=== PATIENT | male | born 1970 | race Caucasian/White ===

== ENCOUNTER 2018-07-01 12:09 | Emergency (ER) | payer OTHER ==
[2018-07-01] MEDS ORDERED: ALBUTEROL 3 ML DEYVIAL IH ONE (13:07)
--- NOTE | 2018-07-01 13:07 | EDPHY ---
H & P Time Seen by Provider: 07/01/18 12:34 HPI/ROS: CLINICAL IMPRESSION: Influenza, bronchitis ASSESSMENT/PLAN: 47-year-old male presents to the emergency department with 4 days of URI symptoms, dry cough, wheezing, body aches and subjective fever and chills. Patient is afebrile on arrival although chilled and appears uncomfortable. No hypoxia or respiratory distress. He had diffuse wheezing throughout on initial exam which was improved after an albuterol neb. No chest x-ray evidence of underlying pneumonia or acute cardiopulmonary disease. He was influenza a positive. Remainder of labs reassuring with no leukocytosis, normal lactate, renal function and no evidence of severe dehydration. Given that patient is 4 days into his symptoms, Tamiflu was deferred. I gave him a prescription for an albuterol inhaler, encouraged primary care recheck, supportive care at home, warning signs return to ED sooner alignment discharge. DIFFERENTIAL DX: Differential diagnosis includes but not limited to viral syndrome, influenza, pneumonia, bronchitis, sepsis ED PROCEDURES: See lab and imaging results below ED COURSE: 3:15 p.m.: Patient reassessed, feeling better after neb treatment, lung sounds improved, no hypoxia vitals remained stable. Given that he has been symptomatic for 4 days, not an ideal candidate for Tamiflu. No antibiotics indicated at this time. Radiology read x-ray has no evidence of pneumonia. Will prescribe albuterol inhaler and recommend PCP follow-up. CHIEF COMPLAINT: Cough, body ache HPI: 47-year-old male with past medical history of a neuromuscular disorder of the lower extremities presents to the emergency department with 4 days of dry cough , shaking chills, subjective fevers, and body aches. Patient reports he has been using Tylenol and ibuprofen at home. He came to the ED today for worsening cough and shakes. He reports no underlying cardiopulmonary disease or asthma. He does not smoke cigarettes. He did not get a flu shot this year. He has a implanted neuro modulator in his abdomen to help with chronic back pain. He has been to numerous neurologist but has never had a formal diagnosis to his neuromuscular disorder. No worsening lower extremity weakness or muscle spasms. His upper extremities are unaffected. No associated nausea, vomiting, diarrhea although he states his abdomen is"tight"from coughing so much. PAST MEDICAL HISTORY: Undiagnosed neuromuscular disorder, depression, ADD, mood instability Pertinent Past Surgical History: Multiple orthopedic surgeries Family History: None reported Social History: Nonsmoker ROS: A full 10 point review of systems was negative except for those mentioned in HPI. PHYSICAL EXAM: General Appearance: Alert, oriented, appropriate, cooperative, NAD, well hydrated, non-toxic appearing, VSS, no hypoxia. HEENT: TMs are clear bilaterally no perforation or FB, no injection, no evidence of serous or mucopurulent otitis. Oropharynx clear is no erythema or exudates, no tonsillar hypertrophy or asymmetry. Dentition without abnormality. Eyes: PERRLA, no acute vision change, nystagmus, swelling, discharge, pain or photosensitivity. Conjunctiva pink, no pallor or injection Neck: Supple, nontender, no lymphadenopathy, no midline pain, FROM, no meningismus. Respiratory: There are no retractions, diffuse wheezing throughout all lung mckenzie Cardiac: Regular rate and rhythm, no murmurs or gallops. Gastrointestinal: Abdomen is soft, nontender, bowel sounds normal, no masses/ hernia, no rigidity, guarding or focal peritoneal findings. Skin: Warm, dry, no rashes, no nodules on palpation. MEDICAL DECISION MAKING: Patient was seen independently. Secondary supervising physician at time of evaluation was Dr. Pond. Diagnosis: Influenza, bronchitis. New, requires workup Summary: See Assessment and Plan for summary of ED visit Clinical lab tests: ordered / reviewed. Independent visualization of images, tracing, or specimens: Yes. Patient Progress: Improved. Smoking Status: Never smoked Constitutional: Initial Vital Signs Temperature (C) 36.8 C 07/01/18 12:14 Heart Rate 101 H 07/01/18 12:14 Respiratory Rate 18 07/01/18 12:14 Blood Pressure 105/71 07/01/18 12:14 O2 Sat (%) 96 07/01/18 12:14 O2 Delivery Mode Room Air Allergies/Adverse Reactions: omeprazole [From Prilosec] Allergy (Severe, Verified 07/18/10 13:00) EMESIS omeprazole magnesium [From Prilosec] Allergy (Severe, Verified 07/18/10 13:00) EMESIS Home Medications: Medication Instructions Recorded Celexa 07/17/10 Adderall 10 mg Tablet 12/11/15 Trileptal 12/11/15 Albuterol Hfa Anes Only [Proair 2 puffs IH QID #1 mdi 07/01/18 Hfa Icu (*)] Gabapentin 07/01/18 MDM/Departure - MDM Imaging Results: Imaging Impressions Chest X-Ray 07/01/18 12:20 Impression: Mild peribronchial thickening which can be seen with airways disease /bronchitis. Medications Given: Discontinued Medications Albuterol (Proventil Neb) 3 ml IH EDNOW ONE Stop: 07/01/18 13:08 Last Admin: 07/01/18 13:11 Dose: 3 ml Sodium Chloride (Ns) 1,000 mls @ 0 mls/hr IV EDNOW ONE; Wide Open PRN Reason: Protocol Stop: 07/01/18 13:27 Last Admin: 07/01/18 13:36 Dose: 1,000 mls - Depart Disposition: Home, Routine, Self-Care Clinical Impression: Influenza A Reactive airway disease Qualifiers: Asthma severity: unspecified severity Asthma persistence: unspecified Asthma complication type: with status asthmaticus Qualified Code(s): J45.902 - Unspecified asthma with status asthmaticus Condition: Good Instructions: Influenza (ED) Additional Instructions: DISCHARGE INSTRUCTIONS FROM YOUR DOCTOR Thank you for visiting our emergency department today. Please keep in mind that discharge from the emergency department does not mean that there is nothing wrong - it simply means that we have not identified an emergency condition that requires further evaluation or treatment in the hospital. You should always plan to follow up with primary care for re-evaluation of your condition in the next 2-3 days. If you have been referred to a specialist, please call as soon as possible (today or tomorrow) to schedule your follow up appointment at the appropriate time. The radiologist read your chest x-ray as no evidence of pneumonia but rather inflamed airways. We gave you a prescription for albuterol with a spacer to use every 4-6 hours as needed for chest tightness and wheezing. Given that you have been symptomatic for 4 days, URI out of the window for using Tamiflu for influenza. Please stay well hydrated, rest, and follow up with a primary care provider in in the next 1-2 days. Return to the emergency department sooner for difficulty breathing, chest pain, persistent high fevers, inability to stay hydrated, or any other concerns. People present with illnesses and injuries in different ways, and it is always possible that we have missed something. You may always return for re-evaluation if symptoms worsen or if they are not improving or if you develop new/different symptoms. Again, thank you for choosing our emergency department. We hope that you feel better. Prescriptions: Albuterol Hfa Anes Only [Proair Hfa Icu (*)] 2 puffs IH QID #1 mdi Referrals: Kaushal Carrion [Primary Care Provider] - 1-2 days without fail
[2018-07-01] MEDS ORDERED: NS 1,000 ML IV ONE (13:26)
[2018-07-01 14:50] LABS: PLATELET COUNT 93 10^3/uL (150-400)
[2018-07-01 15:32] VITALS: BP 112/68
== END 2018-07-01 15:32 | disposition home or self-care (01) ==
DX: J45.902 Unspecified asthma with status asthmaticus (principal)
CPT/HCPCS: 71046; 99284; J7613

== ENCOUNTER 2018-07-03 14:35 | Emergency (ER) | payer OTHER ==
[2018-07-03] MEDS ORDERED: IPRATROPIUM/ALBUTEROL 3 ML DEYVIAL IH ONE (15:39)
[2018-07-03] MEDS ORDERED: DEXAMETHASONE 4 MG TAB PO ONE (15:39)
--- NOTE | 2018-07-03 16:18 | EDPHY ---
H & P Time Seen by Provider: 07/03/18 15:29 HPI/ROS: CLINICAL IMPRESSION: Bronchitis ASSESSMENT/PLAN: 47-year-old male, familiar to me, presents to the emergency department for the 2nd time in 2 days with complaints of cough and shortness of breath. I saw this patient 2 days ago, he was diagnosed with influenza and bronchitis. He took his albuterol for the 1st day but has not been taking it today and did not follow up with primary care. He is here requesting repeat chest x-ray. No hypoxia, vital signs are stable, no respiratory distress. No radiologic findings suggestive of underlying pneumonia. Patient received a DuoNeb with improvement in his symptoms. He reports no fevers in the last 2 days. He was given a 1 time dose of dexamethasone as he preferred not to have prednisone, a prescription for 2 additional doses, and a prescription for a cough suppressant. I again encouraged follow-up with primary care in 1-2 days, continue albuterol inhaler every 4 hr with spacer, warning signs return to ED sooner outlined in person and discharge papers. DIFFERENTIAL DX: Differential includes but not limited to acute viral bronchitis, viral URI with cough, influenza, pneumonia ]ED PROCEDURES:] See imaging results below ED COURSE: Patient reassessed after neb treatment and reports improved breathing CHIEF COMPLAINT: Cough, trouble breathing HPI: 47-year-old male presents to the emergency department for the 2nd time in 2 days with complaints of cough and shortness of breath. Patient was seen by this provider 2 days ago, diagnosed with influenza and bronchitis. He has been using albuterol yesterday but not today. He did not make a follow-up appoint with primary care. He reports he is not able to sleep at night due to his cough. He reports no fevers for the last 2 days. No chest pain or back pain. No abdominal pain nausea or vomiting. PAST MEDICAL HISTORY: Neuromuscular disease, ADD, mood disorder, chronic pain Pertinent Past Surgical History: Multiple past orthopedic surgeries Family History: None reported Social History: Nonsmoker ROS: A full 10 point review of systems was negative except for those mentioned in HPI. PHYSICAL EXAM: General Appearance: Alert, oriented, appropriate, cooperative, NAD, well hydrated, non-toxic appearing, VSS, no hypoxia, speaking in full sentences, no respiratory distress. HEENT: TMs are clear bilaterally no perforation or FB, no injection, no evidence of serous or mucopurulent otitis. Oropharynx clear is no erythema or exudates, no tonsillar hypertrophy or asymmetry. Dentition without abnormality. Eyes: PERRLA, no acute vision change, nystagmus, swelling, discharge, pain or photosensitivity. Conjunctiva pink, no pallor or injection Neck: Supple, nontender, no lymphadenopathy, no midline pain, FROM, no meningismus. Respiratory: There are no retractions, expiratory wheezing and crackles to bilateral upper lobes Cardiac: Regular rate and rhythm, no murmurs or gallops. Gastrointestinal: Abdomen is soft, nontender, bowel sounds normal, no masses/ hernia, no rigidity, guarding or focal peritoneal findings. Skin: Warm, dry, no rashes, no nodules on palpation. MEDICAL DECISION MAKING: Patient was seen independently. Secondary supervising physician at time of evaluation was Giuseppe Winchester. Diagnosis: Acute bronchitis. New, requires workup Summary: See Assessment and Plan for summary of ED visit Independent visualization of images, tracing, or specimens: Yes, also reviewed with radiologist. Review / Summarize previous medical records: Reviewed past ED record Patient Progress: Stable, improved. Smoking Status: Never smoked Constitutional: Initial Vital Signs Temperature (C) 36.9 C 07/03/18 14:42 Heart Rate 90 07/03/18 14:42 Respiratory Rate 18 07/03/18 14:42 Blood Pressure 114/72 07/03/18 14:42 O2 Sat (%) 93 07/03/18 14:42 O2 Delivery Mode Room Air Allergies/Adverse Reactions: omeprazole [From Prilosec] Allergy (Severe, Verified 07/03/18 14:40) EMESIS omeprazole magnesium [From Prilosec] Allergy (Severe, Verified 07/03/18 14:40) EMESIS Home Medications: Medication Instructions Recorded Celexa 07/17/10 Adderall 10 mg Tablet 12/11/15 Trileptal 12/11/15 Albuterol Hfa Anes Only [Proair 2 puffs IH QID #1 mdi 07/01/18 Hfa Icu (*)] Gabapentin 07/01/18 Dexamethasone [Decadron 4 MG (*)] 8 mg PO DAILY #4 tab 07/03/18 HYDROcodone/CHLORPHEN P-STIREX 5 ml PO HS PRN #50 ambrose.er.12h 07/03/18 [Tussionex Pennkinetic Susp] MDM/Departure - MDM Imaging Results: Imaging Impressions Chest X-Ray 07/03/18 15:38 Impression: Suggestion of underlying bronchitis, appearing more pronounced than on the most recent study. Imaging: Discussed imaging studies w/ call center representative Radiologist (No evidence of pneumonia), I viewed and interpreted images myself Medications Given: Discontinued Medications Albuterol/Ipratropium (Duoneb) 3 ml IH EDNOW ONE Stop: 07/03/18 15:40 Last Admin: 07/03/18 15:46 Dose: 3 ml Dexamethasone (Decadron) 12 mg PO EDNOW ONE Stop: 07/03/18 15:40 Last Admin: 07/03/18 16:01 Dose: 12 mg - Depart Disposition: Home, Routine, Self-Care Clinical Impression: Bronchitis Condition: Good Instructions: Acute Bronchitis (ED) Additional Instructions: DISCHARGE INSTRUCTIONS FROM YOUR DOCTOR Thank you for visiting our emergency department today. Please keep in mind that discharge from the emergency department does not mean that there is nothing wrong - it simply means that we have not identified an emergency condition that requires further evaluation or treatment in the hospital. You should always plan to follow up with primary care for re-evaluation of your condition in the next 2-3 days. If you have been referred to a specialist, please call as soon as possible (today or tomorrow) to schedule your follow up appointment at the appropriate time. Repeat chest xray shows no evidence of pneumonia. You were given a prescription for a cough suppressant to use at night. Do not drive or drink while taking this. Two days of steroids were also given and an initial dose was provided in the ER. Continue using your albuterol inhaler with spacer every 4 hr. Please follow up with a primary care doctor in 1-2 days. If you do not have one a referral was given. Return to the emergency department for severe shortness of breath, chest pain, high fevers, trouble breathing or any other concern. People present with illnesses and injuries in different ways, and it is always possible that we have missed something. You may always return for re-evaluation if symptoms worsen or if they are not improving or if you develop new/different symptoms. Again, thank you for choosing our emergency department. We hope that you feel better. Prescriptions: Dexamethasone [Decadron 4 MG (*)] 8 mg PO DAILY #4 tab HYDROcodone/CHLORPHEN P-STIREX [Tussionex Pennkinetic Susp] 5 ml PO HS PRN #50 ambrose.er.12h PRN Reason: Cough, Moderate Referrals: NONE *PRIMARY CARE P,. [Primary Care Provider] - As per Instructions No Mack MD [Medical Doctor] - 1-2 days without fail
[2018-07-03 16:37] VITALS: BP 102/70
== END 2018-07-03 16:46 | disposition home or self-care (01) ==
DX: J20.9 Acute bronchitis, unspecified (principal)